=== PATIENT | male | born 1995 | race Native Hawaiian/Other Pacific Islander ===

== ENCOUNTER 2025-08-02 10:20 | Emergency (ER) | payer OTHER ==
[~2025-08-02] VITALS: Ht 160 cm; Wt 68.0 kg
[2025-08-02 11:50] LABS: APPEARANCE,URINE CLEAR (CLEAR); GLUCOSE, URINE (UA) NEGATIVE (NEGATIVE); LEUKOCYTE ESTERASE ,URINE NEGATIVE (NEGATIVE); NITRATE,URINE NEGATIVE (NEGATIVE); OCCULT BLOOD,URINE NEGATIVE (NEGATIVE); SPECIFIC GRAVITIY, URINE 1.014 (1.003-1.030)
[2025-08-02] MEDS ORDERED: DOXY-354 PO (12:40)
[2025-08-02] MEDS: CefTRIAXone SODIUM 1 GM/VIAL IM ONE (13:12)
[2025-08-02] MEDS: LIDOCAINE/PF 1% 2 ML VIAL IM ONE (13:12)
[2025-08-02] MEDS: DOXYCYCLINE HYCLATE 100 MG TABLET PO ONE (13:13)
[2025-08-02] MEDS ORDERED: ACYC-317 PO (13:47)
[2025-08-02 13:55] VITALS: BP 131/74; PULSE 55; RESP 15; TEMP 97.9; O2SAT 99
== END 2025-08-02 13:56 | disposition home or self-care (01) ==
LOC: EMS 10:20
DX: B00.9 Herpesviral infection, unspecified (principal); Z79.624 Long term (current) use of inhibitors of nucleotide synthesis
CPT/HCPCS: 99283; 86592; 81003; 36415; 87491; 87591; 96372; J0696; J3490